=== PATIENT | male | born 1970 | race African-American/Black ===

== ENCOUNTER 2016-05-09 21:46 | Emergency (ER) | payer SELFPAY ==
[~2016-05-09] VITALS: Ht 177.8 cm; Wt 75.0 kg
[~2016-05-09 21:46] MED LIST: BACTRIM,SEPT1 TABLET PO; KEFLEX500 MG PO; NAPROSYN500 MG PO; NORCO 7.5/321 TABLET PO
[2016-05-09 23:18] VITALS: BP 125/77
== END 2016-05-09 23:20 ==
LOC: EME 21:46
DX: S05.12XA Contusion of eyeball and orbital tissues, left eye, initial encounter (principal); S02.2XXA Fracture of nasal bones, initial encounter for closed fracture; Y09 Assault by unspecified means; F17.200 Nicotine dependence, unspecified, uncomplicated
CPT/HCPCS: 70450; 70480; 99281; 99284